=== PATIENT | male | born 1995 | race Caucasian/White ===

== ENCOUNTER 2021-03-01 17:05 | Emergency (ER) | payer OTHER ==
[2021-03-01] MEDS ORDERED: fentaNYL 100 MCG/2 ML SDV IVPUSH ONE (17:14)
[2021-03-01] MEDS ORDERED: Propofol 200 MG/20 ML SDV IVPUSH ONE (17:17)
--- NOTE | 2021-03-01 17:20 | EDM.PDOC ---
ED HPI GENERAL MEDICAL PROBLEM - General Chief Complaint: Upper Extremity Injury/Pain Stated Complaint: DISLOCATED SHOULDER Time Seen by Provider: 03/01/21 17:05 Source of Information: Reports: Patient History Limitations: Reports: No Limitations - History of Present Illness INITIAL COMMENTS - FREE TEXT/NARRATIVE: 25-year-old male, usually healthy was diving for a Frisbee when he landed on his outstretched left arm and feeling a pop and now has severe pain in his arm and unable to move the arm. There is obvious deformity. No other injury. Onset: Sudden Duration: Hour(s): (Injury occurred about 30 minutes ago) Location: Reports: Upper Extremity, Left Worsens with: Reports: Other (Attempted movement is very painful) Associated Symptoms: Reports: Other (Some superficial abrasions on his hand and arm) Left Shoulder Pain Score (Numeric/FACES): 9 - Related Data Allergies Allergy/AdvReac Type Severity Reaction Status Date / Time No Known Allergies Allergy Verified 03/01/21 17:23 Home Meds: Home Meds ISOtretinoin [Amnesteem] 40 mg PO DAILY 03/01/21 [History] Review of Systems - Review of Systems Review Of Systems: See Below Constitutional: Denies: Fever Respiratory: Reports: No Symptoms Cardiovascular: Reports: No Symptoms Skin: Reports: Other (Superficial abrasions of the arm) Neurological: Denies: Paresthesia (No distal numbness of the left arm) Psychiatric: Reports: No Symptoms ED EXAM, GENERAL - Physical Exam Exam: See Below Exam Limited By: No Limitations General Appearance: Alert, Moderate Distress (Very uncomfortable with the left dislocated shoulder) Head: Atraumatic Neck: Supple, Non-Tender Respiratory/Chest: No Respiratory Distress, Lungs Clear Cardiovascular: Regular Rate, Rhythm Extremities: Other (A defect under the lateral aspect of the left shoulder under the AC joint, fullness anteriorly with intense pain of movement of the shoulder. Grasp strength is intact and distal sensation is normal) Neurological: Alert, Oriented, Other (No sensory deficit of the left arm) Psychiatric: Normal Affect, Normal Mood Skin Exam: Warm, Dry, Other (Patient has some superficial abrasions on the left hand and left forearm) Course - Vital Signs Last Recorded V/S: Last Vital Signs Temp 97.8 F 03/01/21 17:57 Pulse 95 03/01/21 17:57 Resp 14 03/01/21 17:57 BP 138/71 03/01/21 17:57 Pulse Ox 99 03/01/21 17:57 - Orders/Labs/Meds Orders: Active Orders 24 hr Category Date Time Status Shoulder 1V Lt [CR] Stat Exams 03/01/21 17:09 Taken Shoulder Comp Lt [CR] Stat Exams 03/01/21 17:44 Taken DME for Discharge [COMM] Stat Oth 03/01/21 17:53 Ordered Meds: Medications Discontinued Medications Generic Name Dose Route Start Last Admin Trade Name Natalie PRN Reason Stop Dose Admin Fentanyl 50 mcg 03/01/21 17:14 03/01/21 17:23 Fentanyl 100 Mcg/2 Ml Sdv IVPUSH 03/01/21 17:15 50 mcg ONETIME ONE Administration Propofol 200 mg 03/01/21 17:17 03/01/21 17:34 Propofol 200 Mg/20 Ml Sdv IVPUSH 03/01/21 17:18 150 mg ONETIME ONE Administration - Re-Assessments/Exams Free Text/Narrative Re-Assessment/Exam: 03/01/21 17:53 With the assistance of anesthesia, propofol sedation was given and the left shoulder was reduced using countertraction. A postreduction x-ray was obtained that looked normal. Left arm was placed in a sling, patient will follow up with orthopedics when he gets home. X-ray was done which confirmed dislocation of the left humerus without fracture prior to the procedure, and a postreduction x-ray showed good reduction. 03/02/21 07:43 Total time under anesthesia was 20 minutes Departure - Departure Time of Disposition: 18:25 Disposition: Home, Self-Care 01 Clinical Impression: Dislocation of left shoulder joint Qualifiers: Encounter type: initial encounter Qualified Code(s): S43.005A - Unspecified dislocation of left shoulder joint, initial encounter - Discharge Information Instructions: Shoulder Dislocation, [id number] Referrals: PCP,None [Primary Care Provider] - Forms: ED Department Discharge Care Plan Goals: Keep arm in your sling until recheck with orthopedics when you get home. Ibuprofen may help with discomfort. - My Orders Last 24 Hours: My Active Orders 03/01/21 17:09 Shoulder 1V Lt [CR] Stat 03/01/21 17:44 Shoulder Comp Lt [CR] Stat 03/01/21 17:53 DME for Discharge [COMM] Stat - Assessment/Plan Last 24 Hours: My Active Orders 03/01/21 17:09 Shoulder 1V Lt [CR] Stat 03/01/21 17:44 Shoulder Comp Lt [CR] Stat 03/01/21 17:53 DME for Discharge [COMM] Stat
--- NOTE | 2021-03-03 09:59 | CR ---
Shoulder 1V Lt, Shoulder Comp Lt CLINICAL HISTORY: Injury FINDINGS: There is a dominant or dislocation the humeral head likely anterior dislocation. Patient is moderately rotated limiting evaluation. Impression: Probable anterior dislocation left shoulder Shoulder 1V Lt, Shoulder Comp Lt CLINICAL HISTORY: Post reduction FINDINGS: There is no acute fracture or dislocation in the left shoulder. Impression: Status post reduction left shoulder dislocation No fracture seen
== END 2021-03-01 18:25 | disposition home or self-care (01) ==
LOC: JP.ED 17:05
DX: S43.005A Unspecified dislocation of left shoulder joint, initial encounter (principal); S50.812A Abrasion of left forearm, initial encounter; S60.512A Abrasion of left hand, initial encounter; X58.XXXA Exposure to other specified factors, initial encounter
CPT/HCPCS: 23650; 73020; 73030; 96374; 99283; J2704; J3010